=== PATIENT | male | born 1950 | race African-American/Black ===

== ENCOUNTER 2017-10-31 09:31 | Inpatient (IN) | payer MEDICARE ==
[~2017-10-31] VITALS: Ht 175.3 cm; Wt 68.0 kg
--- NOTE | ~2017-10-31 | HEMODYNAMI ---
PATIENT:JUAN MANUEL ALMEIDA MEDICAL RECORD: [id number] : 54 LOCATION:[place] [address] ADMISSION DATE: 11/01/17 Generatedon:11/03/201713:13 Patient name: JUAN MANUEL ALMEIDA Patient #: [id number] SSN: : 1950 Date of study: 11/03/2017 Page: Of Hemodynamic Procedure Report Patient Data Patient Demographics Procedure consent was obtained First Name: JUAN MANUEL Gender: Male Last Name: ELLE : 1950 Patient #: [id number] Age: 67 year(s) Race: Black Additional ID: [id number] Contact details Address: [address] [place] [address] [address] State: [place] City: [facility] Zip code: [address] Admission Admission Data Admission Date: 11/01/2017 Admission Time: 15:38 Room #: [facility] Procedure Procedure Types Cath Procedure Peripheral Cath Diagnostic Procedure Miscellaneous Procedure Description Procedure Date Procedure Date: 11/03/2017 Procedure Start Time: 11:40 Procedure Staff Name Function Sai Jacobo MD Performing Physician Tanner Odonnell RT Monitor Alea Rudd RT Scrub Esha Card RN Nurse Fredo Turner MD Additional personnel Procedure Data Cath Procedure Fluoroscopy Diagnostic fluoroscopy Total fluoroscopy dose: dose: 1139 mGy 1139 mGy Contrast Material Contrast Material Type Amount (ml) Isovue 300 130 Entry Location Entry Primary Successful Side Size Upsize Upsize Entry Closure Succes sful Closure Location (Fr) 1 (Fr) 2 (Fr) Remarks Device Remarks Femoral Right 5 Fr artery Diagnostic catheters Device Type Used For End Catheter Placement Angiodynamics SOS OMNI 2 NON B 5FR 65CM catheter Procedure Medications Medication Administration Route Dosage Heparin Flush Bag added to field 2 bags (1000units/500ml NS) Heparin Flush Bag added to field 1 bags (1000units/500ml NS) Lidocaine 1% added to field 20 Hemodynamics Rest Heart Rate: 63 (bpm) Snapshots Pre Cath Intra NCS Post Cath Vital Signs Time Heart Resp SPO2 etCO2 NIBP (mmHg) Rhythm Pain Sedation Rate (ipm) (%) (mmHg) Status Level (bpm) 11:08:41 0 123/77(110) NSR 0 (11) 10(A) , No pain 11:12:55 24.1 86/56(71) NSR 0 (11) 10(A) , No pain 11:16:57 23.4 92/69(76) NSR 0 (11) 10(A) , No pain 11:21:01 70 11 27.2 88/61(79) NSR 0 (11) 10(A) , No pain 11:25:00 69 10 28.7 94/63(73) NSR 0 (11) 10(A) , No pain 11:29:02 65 9 29.4 96/62(76) NSR 0 (11) 10(A) , No pain 11:33:06 63 9 28.7 91/61(87) NSR 0 (11) 10(A) , No pain 11:37:05 63 11 30.9 95/64(76) NSR 0 (11) 10(A) , No pain 11:41:05 80 13 16.6 103/72(95) NSR 0 (11) 10(A) , No pain 11:45:09 88 12 0 94/68(89) NSR 0 (11) 10(A) , No pain 11:49:09 80 13 27.2 95/66(80) NSR 0 (11) 10(A) , No pain 11:53:18 82 14 98 0 93/67(80) NSR 0 (11) 10(A) , No pain 11:57:20 72 56 98 0 91/61(70) NSR 0 (11) 10(A) , No pain 12:01:22 90 10 0 89/57(71) NSR 0 (11) 10(A) , No pain 12:05:23 78 12 100 0 82/53(66) NSR 0 (11) 10(A) , No pain 12:09:23 76 12 0 78/52(64) NSR 0 (11) 10(A) , No pain 12:13:19 60 11 99 17.3 94/61(72) NSR 0 (11) 10(A) , No pain 12:17:18 85 11 97 0 95/72(85) NSR 0 (11) 10(A) , No pain 12:21:22 80 11 0 85/55(68) NSR 0 (11) 10(A) , No pain 12:25:19 65 11 99 94/61(75) NSR 0 (11) 10(A) , No pain 12:29:25 75 21 99 0 74/50(68) NSR 0 (11) 10(A) , No pain 12:34:18 61 10 98 0 87/50(76) NSR 0 (11) 10(A) , No pain 12:38:22 63 13 98 0 81/51(63) NSR 0 (11) 10(A) , No pain 12:43:12 72 12 84 0 93/70(85) NSR 0 (11) 10(A) , No pain 12:47:10 74 11 99 21.1 108/77(88) NSR 0 (11) 10(A) , No pain 12:51:18 73 75 98 9.8 98/63(81) NSR 0 (11) 10(A) , No pain 12:55:21 77 21 96 9 92/63(79) NSR 0 (11) 10(A) , No pain 12:59:25 68 39 93 5.2 97/57(83) NSR 0 (11) 10(A) , No pain 13:03:17 64 22 100 0 104/92(101) NSR 0 (11) 10(A) , No pain 13:07:24 67 12 98 6 97/57(73) NSR 0 (11) 10(A) , No pain 13:11:26 64 14 100 103/65(79) NSR 0 (11) 10(A) , No pain Medications Time Medication Route Dose Verified Delivered Reason Notes Effecti veness by by 11:41:48 Heparin Flush added 2 Bag to bags (1000units/500ml field NS) 11:41:59 Heparin Flush added 1 Bag to bags (1000units/500ml field NS) 11:42:10 Lidocaine 1% added 20ml Sai Gibbs to vial Odalis Jacobo MD field MD Procedure Log Time Note 11:05:30 Tanner Odonnell RT (R) (CV) sent for patient. Start room use. 11:07:43 Vital chart was started 11:09:05 Time tracking: Regular hours 11:09:13 Plan of Care:Hemodynamics will remain stable., Cardiac rhythm will remain stable., Comfort level will be maintained., Respiratory function will remain adequate., Patient/ family verbilizes understanding of procedure., Procedure tolerated without complication., Recovers from procedure without complications.. 11:09:23 Patient received from Med/Surg to IR Alert and oriented. Tansferred to table in Supine position. 11:09:44 SEE ANESTHESIA NOTE FOR PRE PROCEDURE TIVA 11:09:49 Correct patient and procedure confirmed by team. 11:09:51 Signed procedure consent form obtained from patient. 11:09:52 ECG and BP/O2 sat monitors applied to patient. 11:09:55 - 11:10:01 Use device set IR Diagnostic 11:10:03 ACIST Syringe (10108) opened to sterile field. 11:10:04 ACIST Hand Control (36815) opened to sterile field. 11:10:04 ACIST Manifold (25568) opened to sterile field. 11:10:05 Bag Decanter (2002S) opened to sterile field. 11:10:05 Sterile Angiographic Pack opened to sterile field. 11:25:31 KARISHMA HERE FROM ANESTHESIA 11:25:57 Sharps counted by scrub and verified by R.N. 11:26:11 Right groin area was prepped with chlora-prep and draped in sterile fashion 11:26:29 Baseline sample Acquired. 11:38:34 Physician arrived 11:38:35 --------ALL STOP TIME OUT------ 11:38:36 Final Timeout: patient, procedure, and site verified with staff and physician. All members of the team are in agreement. 11:38:39 Right groin site verified by team. 11:38:51 Sedation plan: TIVA Medication:Propofol 11:40:19 Procedure started. 11:40:20 Full Disclosure recording started 11:40:25 Local anesthetic to right femoral artery with Lidocaine 1% by Sai Jacobo MD.INITIAL ACCESS ONLY 11:40:33 [employer] DOC .035 guide wire opened to sterile field. 11:40:34 Micropuncture VSI 4FR kit opened to sterile field. 11:40:34 SHEATH 5FR [place] (VDY553) opened to sterile field. 11:40:35 TUBING Contrast Injection High Pressure (JTI591X) opened to sterile field. 11:40:45 A 5 Fr sheath was inserted into the Right Femoral artery 11:41:48 Heparin Flush Bag (1000units/500ml NS) 2 bags added to field was administered by ; ; 11:41:59 Heparin Flush Bag (1000units/500ml NS) 1 bags added to field was administered by ; ; 11:42:10 Lidocaine 1% 20ml vial added to field was administered by Sai Jacobo MD; ; 11:45:34 A Intraxio SOS OMNI 2 NON B 5FR 65CM catheter was advanced over th e wire and used for . 11:58:18 RENEGADE STAIGHT 150CM microcatheter opened to sterile field. 11:58:19 Terumo GT DOUBLE ANGLE .018 glide wire opened to sterile field. 12:22:07 [employer] EMBO HILAL 2.0-2 coil opened to sterile field. 2 PER PACK 12:45:57 Terumo 5FR COBRA 65CM glide catheter opened to sterile field. 12:48:16 Terumo ANGLE 180L glide wire opened to sterile field. 12:54:48 Procedure ended.(Physican Out) 12:58:03 Flurop Dose total: 1139 12:58:03 Fluoroscopy dose: 1139 mGy 12:58:17 Contrast amount:Isovue 300 130ml. 12:58:19 Sharps counted by scrub and verified by R.N. 12:59:52 SEE ANESTHESIA NOTE FOR POST PROCEDURE TIVA 13:12:25 Post-op/insertion site Right Femoral artery dressed using a 4 x 4 and Tegaderm. 13:12:29 Post Procedure Pulses reassessed and unchanged 13:12:32 Post procedure instruction explained to patient.Patient verbalizes understanding. 13:12:34 Procedure and supply charges have been captured, reviewed, submitted an d are correct. 13:12:38 Report given to CVICU. 13:12:42 Patient transfered to CVICU with Bed. 13:13:19 Vital chart was stopped Device Usage Item Name Manufacture Quantity Catalog Hospital Part Current Mini mal Lot# / Number Charge Number Stock Stock Serial# Code ACIST Syringe Acist Medical 1 46214 874489 048427 [id number] 20 (40733) Systems Inc ACIST Hand Acist Medical 1 35469 487595 347633 335922 5 Control Systems Inc (56723) ACIST Acist Medical 1 25483 933492 713811 495259 5 Manifold Systems Inc (21861) Bag Decanter Microtek 1 2001S 881331 04077 256329 5 () Medical Inc. Sterile Cardinal 1 [id number] 205524 908918 5 Angiographic Health Pack [place] DOC .035 [facility] 1 H08942 224265 434491 5 [id number] guide wire Micropuncture VSI VASCULAR 1 7266V 571870 070224 5 VSI 4FR kit SOLUTIONS SHEATH 5FR Terumo 1 SYV466 545382 642518 608088 40 [place] ([id number]) TUBING [facility] 1 [id number] 153179 313268 509059 5 Contrast Injection High Pressure (SDF648Y) Angiodynamics Angiodynamics 1 [id number] 086917 21541 455759 5 SOS OMNI 2 NON B 5FR 65CM catheter RENEGADE Melrude 1 [id number] 541276 909000 5 STAIGHT 150CM Scientific microcatheter Terumo GT Terumo 1 [id number] 810584 195775 5 030191 DOUBLE ANGLE .018 glide wire [place] EMBO [facility] 1 H20339 503917 492920 5 1437696 HILAL 2.0-2 coil Terumo 5FR Terumo 1 CG502 980009 514239 5 COBRA 65CM glide catheter Terumo ANGLE Terumo 1 EQ4574 025752 261327 706286 5 180L glide wire Signature Audit [place] Stage Time Signature Unsigned Intra-Procedure 11/03/2017 Tanenr 1:13:15 PM Shuffield RT (R) (CV) Signatures Monitor : Tanner Signature : [place] RT Date : Time : [address] [place] [address]
[2017-10-31 09:59] LABS: BASOPHILS 0.2 % (0-2); EOSINOPHILS 1.4 % (0-7); HEMATOCRIT 31.3 % (42.0-54.0); HEMOGLOBIN 10.1 g/dL (13.5-17.5); IMMATURE GRANULOCYTES 0.5 % (0-5); LYMPHOCYTES 35.4 % (15-50); MCH 31.3 pg (26.0-34.0); MCHC 32.3 g/dL (31.0-37.0); MCV 96.9 fL (80.0-100.0); MEAN PLATELET VOLUME 9.6 fL (7.4-10.4); MONOCYTES 13.6 % (2-11); NEUTROPHILS 48.9 % (40-80); PLATELET COUNT 272 10x3/uL (130-400); RBC 3.23 10x6/uL (4.20-6.10); RDW 14.6 % (11.5-14.5); WBC 5.7 10x3/uL (4.8-10.8)
[2017-10-31 10:20] LABS: ALBUMIN 3.5 g/dL (3.4-5.0); ANION GAP 14.9 mmol/L (8-16); BILIRUBIN - TOTAL 0.21 mg/dL (0.2-1.3); CALCIUM 8.6 mg/dL (8.5-10.1); CARBON DIOXIDE 24.2 mmol/L (21.0-32.0); CREATININE - SERUM 1.4 mg/dL (0.6-1.3); POTASSIUM - SERUM 4.1 mmol/L (3.5-5.1); PROTEIN - SERUM 7.2 g/dL (6.4-8.2)
[2017-10-31 10:33] LABS: INR 1.11 (0.85-1.17); PROTIME 13.9 SECONDS (11.6-15.0)
[2017-10-31 10:34] LABS: APTT 36.5 SECONDS (22.8-39.4)
[2017-10-31] MEDS ORDERED: NORVASC10 MG PO (13:02)
[2017-10-31] MEDS ORDERED: METOPROLOL TAR100 M1 PO (13:02)
[2017-10-31] MEDS ORDERED: PRINIVIL20 MG PO (13:03)
[2017-10-31] MEDS ORDERED: ASPIRIN81 MG PO (13:03)
[2017-10-31 16:11] VITALS: BP 106/68
--- NOTE | 2017-10-31 17:09 | NUR ---
IV IN LEFT AC WAS PULLED OUT, CATHETER STILL INTACT. PLACE NEW IV IN LEFT FOREARM, FLUSHES AND IS PATENT.
[2017-10-31 17:15] VITALS: BMI 21.9
--- NOTE | 2017-10-31 19:00 | NUR ---
REPORT RECEIVED AND CARE OF PT ASSUMED. PT LYING IN SUPINE POSITION VISITING WITH FAMILY MEMBER. IV IN LEFT FA PATENT WITH NS INFUSING AT 75 ML / HR. TELEMETRY IN PLACE AND READING 65 SR AT THIS ASSESSMENT. PT CURRENTLY DRINKING GOLYTELY PER ORDER.
[2017-10-31 20:00] VITALS: BP 103/61
--- NOTE | 2017-10-31 20:20 | NUR ---
PT CONSENTED FOR EGD AND COLONOSCOPY W/ TIVA. WITNESSED AND PLACED IN CHART.
--- NOTE | 2017-10-31 21:00 | NUR ---
ENCOURAGING PT TO CONTINUE DRINKING GOLYTELY PER ORDER.
--- NOTE | 2017-10-31 23:00 | NUR ---
IV IN LEFT FA OCCLUDED. REMOVED WITH CATHETER TIP INTACT. RE-SITED TO LEFT UPPER ARM USING 20 GUAGE CATHETER IN ONE STICK. LEAVING SL AT THIS TIME PER PT REQUEST, HE IS GETTING UP TO RESTROOM A LOT AT THIS TIME.
[2017-11-01 03:25] LABS: BASOPHILS 0.2 % (0-2); EOSINOPHILS 0.9 % (0-7); IMMATURE GRANULOCYTES 0.4 % (0-5); LYMPHOCYTES 31.5 % (15-50); MCH 31.1 pg (26.0-34.0); MCHC 33.2 g/dL (31.0-37.0); MEAN PLATELET VOLUME 9.7 fL (7.4-10.4); RDW 14.1 % (11.5-14.5); WBC 4.7 10x3/uL (4.8-10.8)
[2017-11-01 03:26] LABS: HEMATOCRIT 23.5 % (42.0-54.0); HEMOGLOBIN 7.8 g/dL (13.5-17.5); MCV 93.6 fL (80.0-100.0); PLATELET COUNT 199 10x3/uL (130-400); RBC 2.51 10x6/uL (4.20-6.10)
[2017-11-01 03:58] LABS: CALC OSMOLALITY 279 mosm/kg (275-300); CALCIUM 7.8 mg/dL (8.5-10.1); CARBON DIOXIDE 27.2 mmol/L (21.0-32.0); CHLORIDE - SERUM 106 mmol/L (98-107); CREATININE - SERUM 0.9 mg/dL (0.6-1.3); GLUCOSE 86 mg/dL (74-106); POTASSIUM - SERUM 3.4 mmol/L (3.5-5.1); SODIUM 140 mmol/L (136-145); UREA NITROGEN 17 mg/dL (7-18); eGFR NON AFRICAN AMERICAN 90 mL/min (90-120)
[2017-11-01 04:00] VITALS: BP 92/56
--- NOTE | 2017-11-01 07:45 | NUR ---
PT HERE FOR GI BLEED FOR THIS VISIT IV TO LEFT UPPER ARM PATENT AND INTACT AT THIS TIME SRX2 BED AT LOWEST SETTING CALL LIGHT WITHIN REACH WILL CONTINUE TO MONITOR
--- NOTE | 2017-11-01 08:00 | NUR ---
PT ASSESSMENT COMPLETE AWAKE AND ALERT ORIENTED X 3 LUNGS CLAER BILATERALLY NO ACUTE DISTRESS NTOED VOICES ALL NEEDS TO STAFF CALL LIGHT INREACH PT H&H LOW AND WILL TRANSFUSE PER ORDER
[2017-11-01 08:02] VITALS: BP 93/61
--- NOTE | 2017-11-01 11:00 | NUR ---
PT WITH ORDER FOR BLOOD WILL TRANSFUSE WHEN READY
[2017-11-01 14:04] VITALS: BMI 21.8
--- NOTE | 2017-11-01 16:00 | NUR ---
PT TO GI LAB WITH 2ND UNIT OF BLOOD TRANSFUSING
[2017-11-01 18:47] LABS: HEMATOCRIT 30.9 % (42.0-54.0); HEMOGLOBIN 10.4 g/dL (13.5-17.5)
[2017-11-01 20:00] VITALS: BP 108/77
--- NOTE | 2017-11-01 20:03 | NUR ---
PT LYING IN BED, AWAKE, ALERT, FAMILY AT BEDSIDE. PT DENIES ANY NEEDS AT THIS TIME. 2 UNITS PRBC'S TRANSFUSED EARLIER TODAY, TOLERATED WELL. CONTINUE TO MONITOR CLOSELY. BED LOW, CALL LIGHT IN REACH, SIDE RAILS X 2, HOB 20 DEGREES.
--- NOTE | 2017-11-02 00:13 | NUR ---
PT LYING IN BED TALKING ON PHONE, DENIES ANY NEEDS. FAMILY MEMBER AT BEDSIDE. CONTINUE TO MONITOR CLOSELY. BED LOW, CALL LIGHT IN REACH, SIDE RAILS X 2, HOB 20 DEGREES.
[2017-11-02 04:00] VITALS: BP 103/59
--- NOTE | 2017-11-02 04:24 | NUR ---
PT LYING IN BED, AWAKE, ALERT, ORIENTED, DENIES ANY NEEDS. PTS SON REMAINS AT BEDSIDE. CONTINUE TO MONITOR CLOSELY. PT RESTING COMFORTABLY. BED LOW, CALL LIGHT IN REACH, SIDE RAILS X 2, HOB 20 DEGREES.
[2017-11-02 05:31] LABS: HEMATOCRIT 27.9 % (42.0-54.0); HEMOGLOBIN 9.5 g/dL (13.5-17.5); MCH 30.8 pg (26.0-34.0); MCHC 34.1 g/dL (31.0-37.0); MEAN PLATELET VOLUME 9.8 fL (7.4-10.4); PLATELET COUNT 164 10x3/uL (130-400); RDW 15.6 % (11.5-14.5); WBC 4.6 10x3/uL (4.8-10.8)
[2017-11-02 05:53] LABS: ALKALINE PHOSPHATASE 32 U/L (46-116); ALT (SGPT) 11 U/L (10-68); CALCIUM 7.9 mg/dL (8.5-10.1); CARBON DIOXIDE 25.8 mmol/L (21.0-32.0); CHLORIDE - SERUM 109 mmol/L (98-107); CREATININE - SERUM 0.9 mg/dL (0.6-1.3); GLUCOSE 95 mg/dL (74-106); POTASSIUM - SERUM 3.6 mmol/L (3.5-5.1); PROTEIN - SERUM 5.6 g/dL (6.4-8.2); SODIUM 143 mmol/L (136-145); eGFR NON AFRICAN AMERICAN 90 mL/min (90-120)
[2017-11-02 05:56] LABS: MCV 90.6 fL (80.0-100.0); RBC 3.08 10x6/uL (4.20-6.10)
[2017-11-02 06:02] LABS: ALBUMIN 2.6 g/dL (3.4-5.0); CALC OSMOLALITY 283 mosm/kg (275-300); UREA NITROGEN 10 mg/dL (7-18)
[2017-11-02 06:37] LABS: BASOPHILS 1 % (0-2); EOSINOPHILS 2 % (0-7); LYMPHOCYTES 29 % (15-50); MONOCYTES 12 % (2-11); NEUTROPHILS 55 % (40-80); PLATELET ESTIMATE DECREASED
[2017-11-02 08:41] VITALS: BP 105/68
--- NOTE | 2017-11-02 08:45 | NUR ---
PT IS SITTING UP IN BED WITH FAMILY AT BEDSIDE, PT STATED HE IS ON BP MEDS AT HOME AND HAS BEEN HERE FOR 3 DAYS AND NO MEDS HAVE BEEN STARTED. BASED ON PT FLOWSHEET, BP AND OTHER VS ARE STABLE. ADVISED PT THAT HOME MEDS HAVE BEEN ENTERED AND HE MAY NEED TO SPEAK WITH DR. GRANT IN LOW POSITION, CALL LIGHT IN REACH
--- NOTE | 2017-11-02 09:33 | NUR ---
Patient Name: JUAN MANUEL ALMEIDA Admission Status: ER Accout number: [id number] Admission Date: 11-01-2017 : 1950 Admission Diagnosis: Attending: BOBBY STARK Current LOS: 1 Anticipated DC Date: 11-05-2017 Planned Disposition: Home Primary Insurance: MEDICARE A & B Discharge Planning Comments: CM MET WITH PATIENT AND SON (JUAN MANUEL) REGARDING D/C NEEDS AND PLANS. PATIENT STATED HE HAS NO STEPS OR STAIRS AT HIS HOME. PATIENTS SON WILL DRIVE HIM HOME AT DISCHARGE. PATIENT IS INDEPENDENT WITH HIS CARE AND HAS NO DME AT HOME. PATIENTS PCP IS DR. VILLAGOMEZ AND USES [facility] FOR HIS PHARMACY. PATIENT IS REFUSING HOME HEALTH AT THIS TIME. CM WILL CONTINUE TO FOLLOW PATIENT WITH D/C NEEDS AND PLANS. PCP DR. HERNANDO PARTIDA [facility]. - [phone] JUAN MANUEL (SON) [phone] Environmental Sciences Professor: Dalia Beckwith Is the patient Alert and Oriented? Yes 0 * How many steps to enter\exit or inside your home? 0 0 * PCP DR. VILLAGOMEZ 0 * Pharmacy [facility] ON [address] 0 * Preadmission Environment Home Alone 0 * ADLs Independent 0 * Equipment None 0 * List name and contact numbers for known caregivers / representatives who currently or will assist patient after discharge: JUAN MANUEL WHITT) [phone] 0 * Community resources currently utilized None 0 * Additional services required to return to the preadmission environment? Yes 0 * Can the patient safely return to the preadmission environment? Yes 0 * Has this patient been hospitalized within the prior 30 days at any hospital? No 0 Grand Total: 0
--- NOTE | 2017-11-02 10:29 | NUR ---
AT BEDSIDE.PT WIHTOUT DISTRESS
[2017-11-02 11:55] VITALS: BP 122/68
[2017-11-02 15:34] VITALS: BP 119/77
--- NOTE | 2017-11-02 19:30 | NUR ---
PT ASSESSMENT COMPLETE AWAKE AND ALERT NO DISTRESS NOTED VOICES ALL NEEDS OT STAFF CALL LIGHT INREACH
[2017-11-02 20:00] VITALS: BP 140/76
--- NOTE | 2017-11-02 20:30 | NUR ---
PATIENT IS AWAKE, ALERT AND ORIENTED X'S 4. RESPIRATIONS ARE EVEN AND UNLABORED. NO SIGNS OF DISTRESS NOTED.
[2017-11-03] VITALS (20 sets, daily range): BP systolic 99–139; BP diastolic 60–80; Ht 175.3 cm; Wt 68.0 kg
[2017-11-03 04:27] LABS: HEMATOCRIT 25.7 % (42.0-54.0); HEMOGLOBIN 8.5 g/dL (13.5-17.5); MCH 30.4 pg (26.0-34.0); MCHC 33.1 g/dL (31.0-37.0); MCV 91.8 fL (80.0-100.0); MEAN PLATELET VOLUME 9.6 fL (7.4-10.4); PLATELET COUNT 160 10x3/uL (130-400); RDW 15.6 % (11.5-14.5); WBC 4.8 10x3/uL (4.8-10.8)
[2017-11-03 04:40] LABS: ALBUMIN 2.4 g/dL (3.4-5.0); ALKALINE PHOSPHATASE 33 U/L (46-116); ALT (SGPT) 10 U/L (10-68); CALC OSMOLALITY 280 mosm/kg (275-300); CALCIUM 7.7 mg/dL (8.5-10.1); CARBON DIOXIDE 25.7 mmol/L (21.0-32.0); CHLORIDE - SERUM 109 mmol/L (98-107); GLUCOSE 98 mg/dL (74-106); MAGNESIUM - SERUM 1.7 mg/dL (1.8-2.4); PHOSPHOROUS 2.2 mg/dL (2.5-4.9); POTASSIUM - SERUM 3.5 mmol/L (3.5-5.1); PROTEIN - SERUM 5.4 g/dL (6.4-8.2); SODIUM 142 mmol/L (136-145); eGFR NON AFRICAN AMERICAN 80 mL/min (90-120)
[2017-11-03 04:41] LABS: UREA NITROGEN 6 mg/dL (7-18)
[2017-11-03 04:53] LABS: LYMPHOCYTES 34 % (15-50); MONOCYTES 13 % (2-11); NEUTROPHILS 52 % (40-80); PLATELET ESTIMATE DECREASED
--- NOTE | 2017-11-03 07:00 | NUR ---
PT NOTED TO HAVE BLOODY LOOSE STOOL THIS AM MARIA G BLOOD NOTED MODERATE AMOUNT STATES THAT THIS IS THE 2ND STOOL LIKE THIS SINCE WAKING THIS AM.
--- NOTE | 2017-11-03 07:47 | NUR ---
PT LYING IN BED ON BACK, STATED HAS BEEN UP TO THE RESTROOM 4 TIMES SINCE MIDNIGHT HAVING BOWEL MOVEMENTS WITH BLOOD IN STOOL. STATED HE FEELS BAD ALL AROUND. WHEN ASKED TO DESCRIBE THE BAD FEELING PT STATED HE IS COLD AND JUST DOES NOT FEEL WELL. ABD SOFT TO TOUCH, NOT TENDER, ACTIVE BOWEL SOUNDS. ADVISED PT NOW NPO STATUS AND DR VILLAGOMEZ WILL BE IN TO SPEAK TO PT SOON. BED IN LOW POSITION, CALL LIGHT IN REACH
--- NOTE | 2017-11-03 09:01 | NUR ---
PATIENT IN BED WITH IV INTACT. STATED NOT FEELING WELL. SUPPOSE TO RECIEVE BLOOD TODAY. EXPLAINED TO PATIENT THAT AFTER BLOOD TRANSFUSION WILL MOST LIKELY FEEL BETTER. VERBALIZED UNDERSTANDING. DENIES ANY NEEDS AT THIS TIME. CALL LIGHT WITHIN REACH.
--- NOTE | 2017-11-03 09:52 | NUR ---
MO SPOKE TO PT IN REGARDS TO PROCEDURE, STATED HE WANTED TO SPEAK TO HIS BEFORE AGREEING TO ANYTHING AND WOULD LIKE TO BE MOVED TO LR. PT ON PHONE WITH AT MOMENT, CONTINUE WITH PLAN OF CARE
[2017-11-03 10:00] LABS: INR 1.19 (0.85-1.17); PROTIME 14.7 SECONDS (11.6-15.0)
[2017-11-03 10:01] LABS: APTT 35.8 SECONDS (22.8-39.4)
--- NOTE | 2017-11-03 10:04 | NUR ---
PT REFUSED TO SIGN CONSENTS UNTIL HIS ARRIVES, STATED SHE SHOULD BE HERE IN AN HOUR OR SO AND WOULD LIKE TO SPEAK WITH ADDY PAYTON THEN
--- NOTE | 2017-11-03 11:00 | NUR ---
PT SIGNED FORMS WITH SON AT BEDSIDE, SPECIALS TEAM CAME AND GOT PT FOR ARTERIOGRAM
--- NOTE | 2017-11-03 14:15 | NUR ---
RECIEVED TO ROOM FROM IR. SHEATH TO R GROIN WITH DRESSING INTACT. NS INFUSING AT 30CC/HR. PPP. VSS. IR NURSEGAURAV HAS BROUGHT SECOND UNIT OF PRBC TO TRANSFUSE. FULL ASSESSMENT COMPLETE PER FLOWSHEET. CALL LIGHT IN REACH. WILL CONT TO ASSESS.
--- NOTE | 2017-11-03 14:23 | NUR ---
NUTRITION F/U CHART REVIEWED. PT MOVED TO ICU S/P PROCEDURE. CURRENTLY NPO. WILL PROVIDE DIET WHEN RESUMED, MONITOR PO INTAKE. RD FOLLOWING
--- NOTE | 2017-11-03 14:45 | NUR ---
CALL LIGHT IN REACH. BED IN LOW POSITION. FAMILY AT BEDSIDE. UPDATE PROVIDED.
--- NOTE | 2017-11-03 15:30 | NUR ---
NO CHANGES NOTED TO GROIN SITE. VSS. PPP.
--- NOTE | 2017-11-03 17:01 | NUR ---
STATED HE WAS COLD. ENGINEERING CALLED TO ADJUST TEMP. WARM BLANKET PLACED.
--- NOTE | 2017-11-03 19:15 | NUR ---
REPORT RECEIVED AND CARE ASSUMED. INITIAL SHIFT ASSESSMENT COMPLETED SEE FLOWSHEET. PT AAOX4 SPEECH CLEAR. ADMITS TO SOME ABDOMINAL DISCOMFORT WHEN QUESTIONED AND DESCRIBED A GNAWING TYPE OF DISCOMFORT. NO CHANGE IN DISCOMFORT WITH PALPATION. PT HAS NO ACTIVE BLEEDING AT THIS TIME. NOTE SHEATH TO RIGHT GROIN, SUTURED IN. DRESSING REPLACED AND CATHETER STABLIZED. PEDAL PULSES EAILY PALPABLE. LEFT FOREARM PIV S/L FLUSHED EASILY. IVF AND LINES ARE CURRENT AND DATED AND LABELED APPROPRIATELY. PT IS MONITORED PER STANDARD CVICU MONITORS WITH ALL ALARMS SET AND VERIFIED. BED IN LOW POSITION CALL LIGHT IN REACH. PT CAUTIONED TO KEEP RIGHT LEG STRAIGHT AND ADVOID BENDING GROIN AREA. PT TEACHING DONE DOCUMENTED ON FLOWSHEET. MOTHER AT BEDSIDE. QUESTIONS ANSWERED.
--- NOTE | 2017-11-03 19:45 | NUR ---
FIRESTOP/CONTAINMENT WORKER AT BEDSIDE FOR REDRAW OF STAT CBC
[2017-11-03 20:06] LABS: BASOPHILS 0.2 % (0-2); EOSINOPHILS 0.2 % (0-7); HEMATOCRIT 29.4 % (42.0-54.0); IMMATURE GRANULOCYTES 0.2 % (0-5); LYMPHOCYTES 20.2 % (15-50); MONOCYTES 14.7 % (2-11); NEUTROPHILS 64.5 % (40-80); PLATELET COUNT 135 10x3/uL (130-400); RBC 3.23 10x6/uL (4.20-6.10); RDW 15.1 % (11.5-14.5)
[2017-11-03 20:18] LABS: WBC 6.3 10x3/uL (4.8-10.8)
--- NOTE | 2017-11-03 20:47 | NUR ---
LABS REVIEWED, IMPROVEMENT NOTED
--- NOTE | 2017-11-03 23:00 | NUR ---
SHIFT REASSESSMENT COMPLETED SEE FLOWSHEET. PT HAS BEEN SLEEPING WELL THIS EVENING. NO SIGNIFICANT CHANGE NOTED. DENIES NEEDS. PEDAL PULSES REMAIN EASILY PALPABLE.
[2017-11-04] VITALS (23 sets, daily range): BP systolic 121–157; BP diastolic 70–91
--- NOTE | 2017-11-04 01:00 | NUR ---
PT AWAKE STATES "I HAVEN'T SLEPT A WINK" PT DENIES PAIN STATING HE JUST CANT GET COMFORTABLE WITH KEEPING HIS LEG STRAIGHT. ASSISTANCE PROVIDED AND PT STATED "IM OK JUST NOT TIRED." WILL CONTINUE TO MONITOR
--- NOTE | 2017-11-04 03:00 | NUR ---
SHIFT REASSESSMENT COMPLETED SEE FLOWSHEET. NO SIGNIFICANT CHANGES. PT CONTINUES TO REST BUT NOT SLEEPING WELL. DENIES PAIN. NO BLEEDING NOTED. RIGHT GROIN REMAINS WNL. PEDAL PULSES EASILY PALPABLE
--- NOTE | 2017-11-04 03:37 | NUR ---
ADVERTISING ASSOCIATE AT BEDSIDE FOR AM LAB DRAW
[2017-11-04 04:08] LABS: BASOPHILS 0.2 % (0-2); EOSINOPHILS 0.5 % (0-7); HEMATOCRIT 27.5 % (42.0-54.0); HEMOGLOBIN 9.4 g/dL (13.5-17.5); IMMATURE GRANULOCYTES 0.3 % (0-5); LYMPHOCYTES 21.6 % (15-50); MCHC 34.2 g/dL (31.0-37.0); MCV 90.8 fL (80.0-100.0); MEAN PLATELET VOLUME 9.8 fL (7.4-10.4); MONOCYTES 16.6 % (2-11); NEUTROPHILS 60.8 % (40-80); PLATELET COUNT 139 10x3/uL (130-400); RBC 3.03 10x6/uL (4.20-6.10); RDW 15.1 % (11.5-14.5); WBC 5.9 10x3/uL (4.8-10.8)
--- NOTE | 2017-11-04 04:18 | NUR ---
CBC RESULTS REVIEWED
[2017-11-04 04:26] LABS: ALBUMIN 2.4 g/dL (3.4-5.0); ALKALINE PHOSPHATASE 30 U/L (46-116); ALT (SGPT) 10 U/L (10-68); CALC OSMOLALITY 280 mosm/kg (275-300); CALCIUM 7.6 mg/dL (8.5-10.1); CARBON DIOXIDE 23.7 mmol/L (21.0-32.0); CHLORIDE - SERUM 109 mmol/L (98-107); GLUCOSE 102 mg/dL (74-106); MAGNESIUM - SERUM 1.6 mg/dL (1.8-2.4); PHOSPHOROUS 2.1 mg/dL (2.5-4.9); POTASSIUM - SERUM 3.5 mmol/L (3.5-5.1); SODIUM 142 mmol/L (136-145); UREA NITROGEN 7 mg/dL (7-18); eGFR NON AFRICAN AMERICAN 80 mL/min (90-120)
--- NOTE | 2017-11-04 04:44 | NUR ---
LAB REVIEWED ELECTROLYTE PROTOCOL FOLLOWED
--- NOTE | 2017-11-04 05:35 | NUR ---
PT C/O PIV BURNING IN WHICH POTASSIUM INFUSING. SITE WNL FLUSHES WELL RATE SLOWED TO 50ML/HR
--- NOTE | 2017-11-04 07:15 | NUR ---
REPORT RECIEVED FROM MANAGER NURSE. PT RESTING IN BED QUIETLY. NO S/SX OF ACUTE DISTRESS NOTED AT THIS TIME. SHIFT ASSESSMENT COMPLETE PER FLOWSHEET. REFER FOR DETAILS. DENIES FURTHER NEEDS AT THIS TIME. WILL CONT TO ASSESS FOR CHANGES. CALL LIGHT IN REACH. MOTHER AT BEDSIDE.
--- NOTE | 2017-11-04 08:30 | NUR ---
IR NURSE AT BEDSIDE. UPDATE PROVIDED. STATED TO ADVANCE PT TO FULL LIQUID DIET. WILL MONITOR.
--- NOTE | 2017-11-04 11:23 | NUR ---
NS THAT IS INFUSING TO R GROIN SHEATH CONT'S TO BEEP STATING PT SIDE IS OCCLUDED. DRESSING REMOVED AND LINE CHECKED TO SEE IF IT IS KINKED. LINE REPOSITIONED. IR NURSE CALLED. STATED SHE WOULD NOTIFY DR. LACY.
--- NOTE | 2017-11-04 12:30 | NUR ---
PALOMO WITH IR AT BEDSIDE TO PULL SHEATH. OPSITE DRESSING PLACED OVER R GROIN. PT INSTRUCTED TO KEEP LEG STRAIGHT FOR 6 HOURS.
[2017-11-04 13:11] LABS: HEMATOCRIT 28.7 % (42.0-54.0); HEMOGLOBIN 9.9 g/dL (13.5-17.5)
--- NOTE | 2017-11-04 14:30 | NUR ---
PT GROIN REMAINS WITHOUT SIGNS OF HEMATOMA. PPP. WILL CONT TO ASSESS. PT WILL REMAINS FLAT UNTIL 1830.
--- NOTE | 2017-11-04 17:00 | NUR ---
DR. GONZALEZ AT BEDSIDE. UPDATE PROVIDED.
--- NOTE | 2017-11-04 19:00 | NUR ---
Received patient sitting up in chair at bedside, assessment completed per flowsheet. Patient AO x4, calm and cooperative with at bedside. Eyes PERRLA @ 4mm with brisk response, sclera is clear/white. S1/S2 noted NSR on telemetry with HR 70, rythmic and regular. Breathing is even and unlabored on room air with O2 sat 94%, lung sounds clear bilateral upper and mid with diminished lower. Abdomen is soft and flat with bowel sounds active x4, non-tender. Patient ambulates self to bathroom, no complaints reported. Full ROM all extremities with all pulses palpable, cap refill < 3 sec with skin warm/dry to touch. 22g PIV R forearm/ L hand dressing CDI, patent with NS @ 75ml/hr infusing. Patient denies pain or other needs at this time, all VSS and will continue to monitor.
[2017-11-04 19:55] LABS: HEMATOCRIT 34.5 % (42.0-54.0); HEMOGLOBIN 11.4 g/dL (13.5-17.5)
--- NOTE | 2017-11-04 21:00 | NUR ---
All HS meds given without difficulty, patient at bedside. Assisted back to bed and reconnected to monitor, no further needs at this time. All VSS and will continue to monitor.
--- NOTE | 2017-11-04 22:40 | NUR ---
Patient IV peulled out R forearm, L hand PIV infiltrated. Both IV D/C, attempted to resite x2 with no success. Will notify another RN to attempt.
--- NOTE | 2017-11-04 23:00 | NUR ---
Reassessment completed per flowsheet, patient sitting up in bed with eyes open with at bedside. Patient AO x4, calm and cooperative. S1/S2 noted NSR on telemetry with HR 69, rythmic and regular. Breathing is is even and unlabored on room air with O2 sat 96%, lung sounds clear bilateral upper and mid with diminished lower. R groin site dressing CDI, soft with no bleeding/drainage noted. All pulses palpable with cap refill < 3 sec, skin warm/dry to touch. Denies pain or other needs at this time, all VSS and will continue to monitor.
[2017-11-05] VITALS (14 sets, daily range): BP systolic 98–126; BP diastolic 65–80
--- NOTE | 2017-11-05 03:00 | NUR ---
Reassessment completed per flowsheet, patient resting in be with eyes closed and at bedside. Patient AO x4, calm and cooperative. S1/S2 noted NSR on telemetry with HR 61, rythmic and regular. Breathing is even and unlabored on room air with O2 sat 96%, lung sounds clear throughout. R groin site dressing CDI, soft to palpation with no bleeding/drainage noted. Full ROM all extremities with all pulses palpable, cap refill < 3 sec with skn warm/dry. Patient denies pain or other needs at this time, all VSS and will continue to monitor.
[2017-11-05 04:30] LABS: HEMATOCRIT 26.2 % (42.0-54.0); HEMOGLOBIN 8.9 g/dL (13.5-17.5)
[2017-11-05 04:41] LABS: MAGNESIUM - SERUM 2.1 mg/dL (1.8-2.4); PHOSPHOROUS 1.9 mg/dL (2.5-4.9); POTASSIUM - SERUM 3.5 mmol/L (3.5-5.1)
[2017-11-05 05:03] LABS: ALBUMIN 2.4 g/dL (3.4-5.0); ALKALINE PHOSPHATASE 31 U/L (46-116); ALT (SGPT) 10 U/L (10-68); CALC OSMOLALITY 281 mosm/kg (275-300); CALCIUM 7.5 mg/dL (8.5-10.1); CARBON DIOXIDE 25.8 mmol/L (21.0-32.0); CHLORIDE - SERUM 109 mmol/L (98-107); GLUCOSE 94 mg/dL (74-106); PROTEIN - SERUM 5.4 g/dL (6.4-8.2); SODIUM 143 mmol/L (136-145); eGFR NON AFRICAN AMERICAN 80 mL/min (90-120)
[2017-11-05 05:06] LABS: UREA NITROGEN 5 mg/dL (7-18)
[2017-11-05 08:50] LABS: HEMATOCRIT 30.1 % (42.0-54.0); HEMOGLOBIN 10.2 g/dL (13.5-17.5)
--- NOTE | 2017-11-05 10:11 | NUR ---
Nutrition Follow Up: Chart reviewed. Pt is eating 67% meal avg on a regular soft diet. +BM 11/01/17. Wt stable. Labs reviewed. Meds noted including Flagyl. Rec continue current diet as tolerated. RD following.
--- NOTE | 2017-11-05 10:25 | NUR ---
0730-RECIEVED AWAKE AND ALERT-R GROIN SOFT TO TOUCH-DR GONZALEZ CALLED UNIT-REVIEWED HCT/HGB-ORDER RECIEVED AND NOTED 4708-XU-AOAL AT [facility]-REVIEWED HGB/HCT-NOTED CURRENT REPEAT ORDER FOR HGB/HCT 0800-DR FRANKLIN AT [facility]-REVIEWED HGB/HCT AND CURRENT PENDING ORDER 0810-CALLED LAB REGARDING CURRENT ORDER AND NOT DRAWN 0840-LAB AT [facility] 0910-RESULTS CALLED TO DR GONZALEZ/ IR-MARIA LUZ BLUE AND DR FRANKLIN-ADDITIONAL TRANSFER ORDER RECIEVED-NEXT ORDERED HGB/HCT AT [address] GONZALEZ
--- NOTE | 2017-11-05 14:26 | NUR ---
AMBULATING IN RM-SON PRESENT
--- NOTE | 2017-11-05 15:45 | NUR ---
PATIENT IN ROOM AT THIS TIME. NO COMPLAINTS OR SIGNS OF DISTRESS. STATED NO PROBLEMS AT THIS TIME. OJ GIVEN TO PATIENT. MAINTNENCE TO COME FIX HEATER. FAMILY AT BEDSIDE. CALL LIGHT WITHIN REACH.
[2017-11-05 16:38] LABS: HEMOGLOBIN 9.7 g/dL (13.5-17.5)
--- NOTE | 2017-11-05 18:50 | NUR ---
PATIENT SITTING UP IN BED WITH NO COMPLAINTS AT THIS TIME. IV INTACT. CALL LIGHT WITHIN REACH.
--- NOTE | 2017-11-05 19:00 | NUR ---
REPORT RECEIVED AND CARE OF PT ASSUMED. PT LYING IN SUPINE POSITION WATCHING TV. IV IN RIGHT FA SALINE LOCKED. WILL MONITOR FOR NEEDS.
--- NOTE | 2017-11-05 20:40 | NUR ---
HS MEDICATIONS GIVEN. WILL CONTINUE TO MONITOR FOR NEEDS.
[2017-11-06] VITALS: BP 134/82
--- NOTE | 2017-11-06 00:12 | NUR ---
PT RESTING QUIETLY IN SUPINE POSITION WITH EYES CLOSED AND UNLABORED BREATHING. WILL CONTINUE TO MONITOR FOR NEEDS.
[2017-11-06 04:00] VITALS: BP 100/62
[2017-11-06 04:40] LABS: BASOPHILS 0.2 % (0-2); EOSINOPHILS 2.2 % (0-7); HEMATOCRIT 27.6 % (42.0-54.0); HEMOGLOBIN 9.3 g/dL (13.5-17.5); IMMATURE GRANULOCYTES 0.2 % (0-5); MCH 30.9 pg (26.0-34.0); MCHC 33.7 g/dL (31.0-37.0); MCV 91.7 fL (80.0-100.0); MEAN PLATELET VOLUME 9.6 fL (7.4-10.4); MONOCYTES 21.5 % (2-11); NEUTROPHILS 47.9 % (40-80); RBC 3.01 10x6/uL (4.20-6.10); RDW 14.7 % (11.5-14.5); WBC 5.1 10x3/uL (4.8-10.8)
[2017-11-06 04:42] LABS: PLATELET COUNT 190 10x3/uL (130-400)
[2017-11-06 05:07] LABS: ALBUMIN 2.4 g/dL (3.4-5.0); ALKALINE PHOSPHATASE 32 U/L (46-116); ALT (SGPT) 12 U/L (10-68); CALC OSMOLALITY 278 mosm/kg (275-300); CALCIUM 7.8 mg/dL (8.5-10.1); CARBON DIOXIDE 26.8 mmol/L (21.0-32.0); CHLORIDE - SERUM 108 mmol/L (98-107); CREATININE - SERUM 0.9 mg/dL (0.6-1.3); GLUCOSE 91 mg/dL (74-106); POTASSIUM - SERUM 3.9 mmol/L (3.5-5.1); PROTEIN - SERUM 5.3 g/dL (6.4-8.2); SODIUM 141 mmol/L (136-145); eGFR NON AFRICAN AMERICAN 90 mL/min (90-120)
[2017-11-06 05:08] LABS: UREA NITROGEN 8 mg/dL (7-18)
--- NOTE | 2017-11-06 09:25 | NUR ---
REC'D SITTING UP IN BED. ALERT AND ORIENTED X4. DENIED PAIN AT THIS TIME. NO DISTRESS NOTED. DENIED NEEDS AT THIS TIME. INSTRUCTED TO CALL IF NEEDED ANYTHING, VERBALIZED UNDERSTANDING. IS WANTING TO GO HOME. BED LOW, LOCKED, CALL LIGHT IN REACH.
[2017-11-06] MEDS ORDERED: FLAGYL500 MG PO (09:50)
[2017-11-06] MEDS ORDERED: FLORAJEN3 CAPS460 MG PO (09:52)
[2017-11-06] MEDS ORDERED: PROTONIX40 MG PO (09:52)
[2017-11-06 10:52] VITALS: BP 118/80
--- NOTE | 2017-11-06 11:17 | NUR ---
DID DISCHARGE INSTRUCTIONS WITH HIM, INFORMED HIM OF APPT DATE AND THAT HE HAS TO CALL TO MAKE THE APPT, EDUCATED ON HOW TO TAKE HIS MEDICATIONS, VERBALIZED UNDERSTANDING. DC'D IV TO THE RIGHT FOREARM, CATHETER STILL INTACT. TOLERATED WELL. SON IS COMING TO SUPERVISING ARCHITECT. WILL GO DOWN IN WHEELCHAIR.
--- NOTE | 2017-11-06 11:56 | NUR ---
REFUSED TO GO DOWN IN A WHEELCHAIR, WANTED TO WALK ON HIS SON DOWN.
--- NOTE | 2017-11-06 18:31 | DS ---
PATIENT:JUAN MANUEL ALMEIDA :54 MEDICAL RECORD: [id number] DISCHARGE SUMMARY ADMISSION DATE: 11/01/17 DISCHARGE DATE: 11/06/17 DATE OF ADMISSION: 10/31/2017. DATE OF DISCHARGE: 11/06/2017. ADMISSION DIAGNOSES: Acute gastrointestinal bleed, hypertension. DISCHARGE DIAGNOSES: Acute gastrointestinal bleed of mesentery secondary to diverticular disease, hypotension. CONSULTS: GI and interventional radiology. PROCEDURES: EGD, colonoscopy, mesenteric arteriogram with interventional embolization of mesenteric artery. HOSPITAL COURSE: The patient was admitted to the Emergency Room with bright red blood, became somewhat hypotensive, had persistent bleeding, transferred to the unit, underwent endoscopy, transfused a total of 4 units of blood, and underwent successful embolization of mesenteric artery with interventional radiology. No recurrent bleeding. The patient is asymptomatic, anxious to go home. Blood pressure medicines have been held with low blood pressures with this hospitalization. The patient has been cleared for discharge. Vital signs on discharge: Temperature 99, blood pressure 100/62, heart rate 71, respirations 18, and O2 sats 99% on room air. The patient declines to stay another day. CBC on discharge, white count 5.1, hemoglobin 9.3, hematocrit 27.6, platelets 190. The patient will follow up in the clinic next week or return to the Emergency Room with any recurrence of bleeding. [place] diet, advance as tolerated, counseled on no alcohol with the metronidazole. Again, blood pressure medicines held until reevaluation in the clinic next week on the , the patient expressed understanding. Again is very anxious to go home, does not like to be in the hospital, and feels much better. He is ambulatory, tolerating diet. DISCHARGE MEDICATIONS: Per med rec. FOLLOWUP: Follow up as above. 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
== END 2017-11-06 12:22 | disposition home or self-care (01) | DRG 982 ==
LOC: D.ER 09:31 → D.MS 11:14 → OBSVTIME 11:14 → D.MS 11:14 → D.SDCHOLD 11-02 14:39 → D.MS 11-02 14:42 → D.CVICU 11-03 11:56 → D.MS 11-05 15:15
PROVIDERS: Emergency Medicine; Family Medicine; General Practice; Internal Medicine Gastroenterology; ADMIT Family Medicine
PROC: 0DJD8ZZ Inspection of Lower Intestinal Tract, Via Natural or Artificial Opening Endoscopic (ICD-10-PCS; 2017-11-01)
PROC: 0DJ08ZZ Inspection of Upper Intestinal Tract, Via Natural or Artificial Opening Endoscopic (ICD-10-PCS; principal; 2017-11-01 16:00)
PROC: 04V53DZ Restriction of Superior Mesenteric Artery with Intraluminal Device, Percutaneous Approach (ICD-10-PCS; 2017-11-03)
DX: K57.31 Diverticulosis of large intestine without perforation or abscess with bleeding (principal); D62 Acute posthemorrhagic anemia; K63.5 Polyp of colon; K25.9 Gastric ulcer, unspecified as acute or chronic, without hemorrhage or perforation; K29.80 Duodenitis without bleeding; K29.60 Other gastritis without bleeding; K44.9 Diaphragmatic hernia without obstruction or gangrene

== ENCOUNTER → 2018-10-26 11:54 | Outpatient (CLI) | payer MEDICARE ==
[2017-11-03 15:46] VITALS: BMI 22.2
[~2018-10-26 11:54] MED LIST: ASPIRIN81 MG PO; FLAGYL500 MG PO; FLORAJEN3 CAPS460 MG PO; METOPROLOL TAR100 M1 PO; NORVASC10 MG PO; PRINIVIL20 MG PO; PROTONIX40 MG PO
== END | disposition home or self-care (01) ==
LOC: D.HCCARDIO 11:54
DX: I20.9 Angina pectoris, unspecified (principal)